=== PATIENT | male | born 1945 | race Two or more races ===

== ENCOUNTER 2024-04-14 10:34 | Emergency (ER) | payer OTHER ==
[~2024-04-14] VITALS: Ht 188 cm; Wt 88.5 kg
[2024-04-14] MEDS ORDERED: LEVOXYL112 MCG PO (10:55)
[2024-04-14] MEDS ORDERED: PEPCID AC20 MG PO (10:56)
[2024-04-14] MEDS ORDERED: PRILOSEC OTC20 MG PO (10:57)
[2024-04-14] MEDS ORDERED: LINZESS145 MCG PO (10:57)
[2024-04-14] MEDS ORDERED: LEVALBUTEROL HCL 1.25 MG/3 ML SOLUTION IH STA (11:49)
[2024-04-14] MEDS ORDERED: BUDESONIDE 0.5 MG/2 ML AMPUL.NEB IH STA (11:50)
[2024-04-14 12:57] LABS: HEMATOCRIT 43.3 % (39.0-48.0); HEMOGLOBIN 14.4 g/dL (13-16.00); MEAN CELL VOLUME 86.5 fL (80.0-100.00); MEAN CORPUSCULAR HEMOGLOBIN 28.9 pg (27.00-32.0); MEAN CORPUSCULAR HGB CONC 33.4 g/dl (32.0-36.0); PLATELET COUNT 204 K/uL (150-450); RED CELL DISTRIBUTION WIDTH 14.8 % (11.5-14.5)
[2024-04-14] MEDS ORDERED: BUDESONIDE 0.5 MG/2 ML AMPUL.NEB IH ONE (13:38)
[2024-04-14] MEDS ORDERED: LEVALBUTEROL HCL 1.25 MG/3 ML SOLUTION IH ONE (13:38)
== END 2024-04-14 15:33 | disposition home or self-care (01) ==
LOC: ER 10:37
PROVIDERS: General Practice
DX: R53.81 Other malaise (principal); Z20.822 Contact with and (suspected) exposure to COVID-19